=== PATIENT | male | born 1965 | race Caucasian/White ===

== ENCOUNTER 2016-10-07 09:54 | Emergency (ER) | payer BC ==
[~2016-10-07] VITALS: Ht 182.9 cm; Wt 88.0 kg
[2016-10-07 09:58] VITALS: TEMP 36.5; Ht 182.9 cm; Wt 88.0 kg
[2016-10-07] MEDS ORDERED: CEFAZOLIN SOD 1 GM VIAL IM STA (10:08)
[2016-10-07] MEDS ORDERED: XYLOCAINE 1%/SOD BICARB 20 ML VIAL INFIL ONE (10:15)
[2016-10-07] MEDS ORDERED: WATER, STERILE FOR INJ 10 ML VIAL ONE (10:30)
--- NOTE | 2016-10-07 10:44 | DIAGNOSTIC IMAGING REPORT ---
LEFT HAND MIN 3 VIEWS ROUTINE CLINICAL HISTORY: Left hand injury. COMPARISON: None FINDINGS: There is dorsal medial dislocation of the middle phalanx of the left third digit with respect to the proximal phalanx. A 3 mm associated fracture fragment is noted. Otherwise, alignment of the left hand is anatomic. Carpal bones are intact. IMPRESSION: Dorsal medial dislocation of the left third digit PIP joint with small associated fracture fragment. Electronically signed by: Rangel Junior M.D. 10/07/2016 10:43 AM Dictated Date/Time: 10/07/2016 10:40 AM
[2016-10-07] MEDS ORDERED: AMOXICILLIN/CLAVULANATE TAB 875 MG TAB PO ONE (12:00)
[2016-10-07] MEDS ORDERED: ATOR10TA88 PO (12:03)
[2016-10-07] MEDS ORDERED: CLR10 PO (12:03)
[2016-10-07] MEDS ORDERED: PRLSR20 PO (12:03)
[2016-10-07] MEDS ORDERED: AMOX875T PO (12:07)
--- NOTE | 2016-10-07 12:32 | DIAGNOSTIC IMAGING REPORT ---
LEFT FINGER(S) MIN 2 VIEWS ROUTINE CLINICAL HISTORY: 3rd digit post reduction COMPARISON: Left hand radiographs October 07, 2016 at 10:23 AM. FINDINGS: Note is made of anatomic alignment of the left third digit status post reduction. Soft tissue swelling at the level of the PIP joint is noted. Lateral view demonstrates a few fracture fragments along the palmar aspect of the PIP joint which were shown on prereduction radiographs. IMPRESSION: Anatomic alignment of the left third digit status post reduction. Redemonstration of a few small acute avulsed bone fragments along the palmar aspect of the PIP joint, likely arising from the middle phalanx. These were shown on prereduction radiographs. Electronically signed by: Rangel Junior M.D. 10/07/2016 12:31 PM Dictated Date/Time: 10/07/2016 12:29 PM
[2016-10-07 12:57] VITALS: BP 141/88; PULSE 86; O2SAT 96
--- NOTE | 2016-10-07 14:37 | EMERGENCY ROOM VISIT NOTE ---
History Report prepared by Irlanda: Katarina Zaidi Under the Supervision of: Dr. Jj Silva M.D. First contact with patient: 10:01 Chief Complaint: HAND PAIN/INJURY Stated Complaint: HAND INJURY-FELL AND LANDED ON HAND History of Present Illness The patient is a 50 year old male who presents to the Emergency Room with complaints of persistent left hand pain starting 0200 today. The patient was drinking alcohol last night. Around 0200, he slipped and landed on his left hand. He also scraped his left knee. He returned home and went to bed. He woke up and realized that his injury was more severe than he had realized and decided to come to the ED. He has pain in his 3rd and 4th fingers and believes that he has dislocated a finger. He denies any head injury or other injury besides the scrape on his leg. He has dislocated a finger in the past playing basketball. He notes that he is leaving for [place] tomorrow and wanted to be examined before he left. He denies any history of medical problems. Source of History: patient Onset: 020 today Position: hand (left) Quality: other (pain, injury) Timing: other (persistent) Note: Pt reports left knee scrape. Pt denies head injury. Review of Systems See HPI for pertinent positives & negatives. A total of 10 systems reviewed and were otherwise negative. Past Medical & Surgical Medical Problems: (1) High cholesterol Family History No pertinent family history stated. Social History Smoking Status: Never Smoker Marital Status: Occupation Status: employed Current/Historical Medications Scheduled Amoxicillin & Pot Clavulanate (Augmentin 875-125 mg), 875 MG PO BID Atorvastatin (Lipitor), 10 MG PO DAILY Loratadine (Claritin), 10 MG PO DAILY Omeprazole (Prilosec), 20 MG PO DAILY Allergies Coded Allergies: Shellfish (Unverified Allergy, Unknown, HIVES, 10/07/16) Physical Exam Vital Signs Date Time Temp Pulse Resp B/P (MAP) Pulse Ox O2 Delivery O2 Flow Rate FiO2 10/07/16 12:57 86 141/88 96 10/07/16 09:58 36.5 88 18 126/78 97 Room Air Physical Exam Constitutional: Vital signs reviewed. Eyes: Pupils are equal round reactive to light. Conjunctiva are noninjected. ENT: Pharynx is clear without erythema or exudate. Mucous membranes are moist. Neck supple without meningeal signs. No midline tenderness to the cervical spine. Respiratory: Clear to auscultation bilaterally. Breath sounds are equal bilaterally. Cardiovascular: Regular rate and rhythm. No rubs or gallops. GI: Soft, nondistended and nontender. Bowel sounds are present. Musculoskeletal: No hip tenderness. Abrasion to the left knee without bony tenderness. Left hand over the volar aspect with 2.5 cm gaping lacerations to the 3rd and 4th digit at the PIP, no tendon or bone is visible, deformity of the 3rd digit. Integumentary: No cyanosis. Neurological: The patient is awake and alert. No focal deficits. Psychiatric: Normal affect. Medical Decision & Procedures ER Provider Diagnostic Interpretation: X-ray results as stated below per interpretation by me and the radiologist: LEFT HAND MIN 3 VIEWS ROUTINE CLINICAL HISTORY: Left hand injury. COMPARISON: None FINDINGS: There is dorsal medial dislocation of the middle phalanx of the left third digit with respect to the proximal phalanx. A 3 mm associated fracture fragment is noted. Otherwise, alignment of the left hand is anatomic. Carpal bones are intact. IMPRESSION: Dorsal medial dislocation of the left third digit PIP joint with small associated fracture fragment. Electronically signed by: Rangel Junior M.D. 10/07/2016 10:43 AM Dictated Date/Time: 10/07/2016 10:40 AM LEFT FINGER(S) MIN 2 VIEWS ROUTINE CLINICAL HISTORY: 3rd digit post reduction COMPARISON: Left hand radiographs October 07, 2016 at 10:23 AM. FINDINGS: Note is made of anatomic alignment of the left third digit status post reduction. Soft tissue swelling at the level of the PIP joint is noted. Lateral view demonstrates a few fracture fragments along the palmar aspect of the PIP joint which were shown on prereduction radiographs. IMPRESSION: Anatomic alignment of the left third digit status post reduction. Redemonstration of a few small acute avulsed bone fragments along the palmar aspect of the PIP joint, likely arising from the middle phalanx. These were shown on prereduction radiographs. Electronically signed by: Rangel Junior M.D. 10/07/2016 12:31 PM Dictated Date/Time: 10/07/2016 12:29 PM Medications Administered Medications (Trade) Dose Ordered Sig/Cinthya Route Start Time Stop Time Status Last Admin Dose Admin Cefazolin Sodium (Ancef Inj) 1,000 mg NOW STAT IM 10/07/16 10:08 10/07/16 10:10 DC 10/07/16 10:35 1,000 MG Sterile Water (Sterile Water Inj) 10 ml STK-MED ONCE .ROUTE 10/07/16 10:30 10/07/16 10:31 DC 10/07/16 10:30 10 ML Amoxicillin/ Clavulanate Potassium (Augmentin Tab) 875 mg ONE ONCE PO 10/07/16 12:00 10/07/16 12:01 DC 10/07/16 12:21 875 MG ED Course 1004: The patient was evaluated in room A2. A complete history and physical exam was performed. 1008: Ancef Inj 1000 mg IM. 1015: Lidocaine HCl 20 ml INFIL. 1030: Sterile Water 10 ml IM. 1048: I reevaluated the patient. I discussed the X-ray results with him. 1153: Dr. Wheeler evaluated the patient. Enrrique Vega PA-C has repaired the lacerations. Dr. Wheeler requests Augmentin for the patient. 1200: Augmentin Tab 875 mg PO. 1215: I reevaluated the patient. I discussed the post reduction X-ray with him. He will take Advil for pain. He verbalized agreement of the treatment plan. He was discharged home. Medical Decision This is a 50-year-old male who presents with an injury to his left hand after falling at 2 AM. Differential diagnosis includes laceration, tendon injury, dislocation, fracture. I did perform a limited focused review of portions of the patient's old chart on the electronic medical record. The patient has had no prior visits to this hospital. I did evaluate the patient as noted above. I did order and personally review the patient's hand x-rays as described above. He does have a small fracture and dislocation of the third digit at the PIP. Orthopedics was consulted. He was seen by Dr. Wheeler. Enrrique Vega PA-C, did perform laceration repair and reduction of the dislocation. Please see his dictation for further details. Postreduction x-ray shows good anatomic alignment. The patient was placed in a bare metal splint. He was given Ancef [address] Wheeler recommended Augmentin. He also recommended that the patient cancel his trip to [place]. He will follow up in the office. He was discharged with a prescription for Augmentin. He was given return instructions. Medication Reconcilliation Current Medication List: was personally reviewed by me Blood Pressure Screening Patient's blood pressure: Elevated blood pressure Blood pressure disposition: Elevated BP felt to be situational Impression Primary Impression: Fracture/dislocation, finger, proximal/middle phalanx Additional Impression: Laceration of multiple sites of left hand and fingers Scribe Attestation The scribe's documentation has been prepared under my direct and personally reviewed by me in its entirety. I confirm that the note above accurately reflects all work, treatment, procedures, and medical decision making performed by me. Departure Information Dispostion Home / Self-Care Prescriptions Amoxicillin & Pot Clavulanate (Augmentin 875-125 mg) 1 Tab Tab 875 MG PO BID for 7 Days, #14 TAB Prov: Jj Silva M.D. 10/07/16 Referrals No Doctor, Assigned (PCP) Jeremy Wheeler D.OCollin Forms HOME CARE DOCUMENTATION FORM, IMPORTANT VISIT INFORMATION Patient Instructions ED Dislocation Finger Redu, ED Fx Finger Open, My [facility] Additional Instructions You have been examined and treated today on an emergency basis only. This is not a substitute for, or an effort to provide, complete comprehensive medical care. It is impossible to recognize and treat all injuries or illnesses in a single emergency department visit. It is therefore important that you follow up closely with your orthopedist in [place]. Call as soon as possible for an appointment. Return for worsening symptoms or if you develop fever, vomiting, redness, discharge from your fingers or any other concerning symptoms. Start Augmentin tonight and take twice a day until finished Keep the finger protected (splinted) until reevaluated. Ice and elevate frequently to reduce pain and swelling Tylenol and Motrin every 6 hours as needed for discomfort After consultation with orthopedics, it is not medically advised for you to travel to [place] tomorrow. Close medical follow-up is advised due to the risk of infection and loss of finger function. Problem Qualifiers Additional Impression: Laceration of multiple sites of left hand and fingers Encounter type: initial encounter Qualified Codes: S61.412A - Laceration without foreign body of left hand, initial encounter; S61.219A - Laceration without foreign body of unspecified finger without damage to nail, initial encounter
--- NOTE | 2016-10-07 17:22 | EMERGENCY ROOM VISIT NOTE ---
ED Visit Note I was asked to suture this patient's wound by Dr. Silva. Please see his dictation for full history and physical. Patient injured himself last night when tripping and falling onto pavement. He was intoxicated at the time. His left long finger has been dislocated for at least 9 hours. His long and ring finger lacerations have been present for an identical amount of time. Right- hand dominant. Informed oral consent was obtained from the patient. Ring and long fingers were prepped with Betadine and draped with a sterile towel. Wounds were anesthetized using 6ml 1% buffered lidocaine in a digital block for each finger. Finger tourniquet was placed on each finger to help with hemostasis. A thorough inspection was performed of the lacerations of both fingers using self-retaining finger retractors. Ring finger has no evidence for disruption of the joint. Flexor tendons are exposed. He was able to independently flex the FDS and FDP tendons on that finger. Strength is 5/5 for resisted flexion and extension. No foreign material was visible. Wound was irrigated copiously using normal sterile saline under jet spray lavage. There was no foreign material visible in the wound. It was then closed using 5-0 nylon in a simple interrupted and [id number] fashion. Excellent wound edge approximation was achieved. Hemostasis was achieved. Attention was then turned to the long finger. It was visibly dislocated at the PIP joint. This was reduced. With extension, the finger did dislocate again at the PIP joint. It was reduced again. There was a visible fragment of bone of approximately 3-4 mm. This was removed. I was able to directly look into the PIP joint space. Condyles appear to be in reasonably good shape. There was a defect on the articular surface of the middle phalanx. Tendons were inspected. There is no visible damage to the tendons. They were independently inspected. FDP and FDS functions were each intact by isolation. Strength is 5/5 for resisted flexion and extension of the long finger. Wound was irrigated copiously using normal sterile saline under jet spray lavage. There was no foreign material visible in the wound. It was then closed using 5-0 nylon in a simple interrupted and figure -of-eight fashion. Excellent wound edge approximation was achieved. Hemostasis was achieved. Wound care precautions were reviewed. Wound care handout was provided. Sutures out in 12-14 days. He may shower but should keep fingers dry. He was placed in an AlumaFoam splint to protect the fingers. They were gagandeep taped. I had a long conversation with the patient about his intentions to go to [place] tomorrow. I also broke with Dr. Wheeler regarding this patient' s intentions. He also discouraged traveling to [place] given the open fracture of the PIP joint. Patient should follow-up with his orthopedist in [place] early this week for reexamination. Prescription was provided for Augmentin 875 mg twice a day as a prophylaxis against infection. Patient states his tetanus is up-to-date. Postreduction x-rays confirmed that the joint was reduced. There may be an additional fracture fragment along the flexor surface of the PIP joint by film. I could not find this inspection, probing, or palpation.
== END 2016-10-07 12:58 | disposition home or self-care (01) ==
LOC: C.EDB 09:56 → C.EDA 12:58
DX: S62.613A Displaced fracture of proximal phalanx of left middle finger, initial encounter for closed fracture (principal); S63.253A Unspecified dislocation of left middle finger, initial encounter; S61.412A Laceration without foreign body of left hand, initial encounter; S61.213A Laceration without foreign body of left middle finger without damage to nail, initial encounter; S61.215A Laceration without foreign body of left ring finger without damage to nail, initial encounter; W01.0XXA Fall on same level from slipping, tripping and stumbling without subsequent striking against object, initial encounter; S80.212A Abrasion, left knee, initial encounter; E78.5 Hyperlipidemia, unspecified